=== PATIENT | female | born 1990 | race Caucasian/White ===

== ENCOUNTER 2016-08-04 15:33 | Emergency (ER) | payer SELFPAY ==
[~2016-08-04] VITALS: Ht 152.4 cm; Wt 60.0 kg
[2016-08-04] MEDS ORDERED: PHENYTOIN SODIUM 1,000 MG in SODIUM CHLORIDE 0.9% 100 ML IV ONE (17:15)
[2016-08-04] MEDS ORDERED: LORAZEPAM 2MG/ML CPJ IV ONE (17:15)
[2016-08-04 17:23] VITALS: BP 147/70
[2016-08-04] MEDS ORDERED: ONDANSETRON HCL 4MG/2ML VIAL IV ONE (17:30)
[2016-08-04 17:32] LABS: BASOPHILS % 0.4 % (0.0-2.0); HEMATOCRIT. 37.8 % (36.0-48.0); HEMOGLOBIN. 12.6 g/dL (12.0-16.0); MEAN CORPUSCULAR HEMOGLOBIN 31.3 pg (28.0-32.0); MEAN CORPUSCULAR HGB CONC 33.3 g/dL (31.0-37.0); MEAN PLATELET VOLUME 7.2 fl (7.4-10.4); NEUTROPHILS % 78.6 % (40.0-76.0); PLATELET 408 x1000/uL (130-400); RED BLOOD CELL COUNT 4.02 mill/uL (4.2-5.4); RED CELL DISTRIBUTION WIDTH 14.1 % (11.6-14.6); WHITE BLOOD COUNT 20.7 x1000/uL (4.5-11.0)
[2016-08-04 17:44] LABS: HCG SCREEN NEGATIVE
[2016-08-04 17:48] LABS: ALANINE AMINOTRANSFERASE 19 IU/L (13-61); ALBUMIN 4.5 g/dL (3.4-5.0); ANION GAP 23; CALCIUM 9.8 mg/dL (8.5-10.1); CARBON DIOXIDE 17 mEq/L (21-32); CHLORIDE 106 mEq/L (98-107); INDEX HEMOLYSI 1 (1-3); INDEX ICTERIC 1 (1-4); INDEX LIPEMIC 1 (1-3); PHENYTOIN 0.4 ug/mL (10-20); UREA NITROGEN BLOOD 16 mg/dL (7-21); eGFR > 60 mL/min (>60)
[2016-08-04 17:50] LABS: CARBAMAZEPINE < 0.5 ug/mL (4-12); PHENOBARBITAL < 2.1 ug/mL (15.0-40.0); VALPROIC ACID < 3.0 ug/mL (50-100)
[2016-08-04 17:52] LABS: PROTHROMBIN TIME 10.6 sec
[2016-08-04] MEDS ORDERED: SODIUM CHLORIDE 0.9% 1,000 ML IV ONE (18:07)
[2016-08-04] MEDS ORDERED: ACETAMINOPHEN 325MG TABLET PO ONE (20:00)
[2016-08-04] MEDS ORDERED: METOCLOPRAMIDE HCL 10MG TABLET PO ONE (20:00)
== END 2016-08-04 20:16 | disposition home or self-care (01) ==
LOC: ER 15:35
DX: S09.8XXA Other specified injuries of head, initial encounter (principal); R56.9 Unspecified convulsions; F17.200 Nicotine dependence, unspecified, uncomplicated; F11.10 Opioid abuse, uncomplicated; R79.1 Abnormal coagulation profile; X58.XXXA Exposure to other specified factors, initial encounter; Y93.89 Activity, other specified; Y92.89 Other specified places as the place of occurrence of the external cause; Y99.8 Other external cause status
CPT/HCPCS: 36415; 70450; 80053; 80156; 80165; 80184; 80185; 84703; 85025; 85610; 96365; 96375; 99285; J1165; J2060; J2405; J7030; Z7610; J7050; J8597